=== PATIENT | female | born 1990 | race Two or more races ===

== ENCOUNTER → 2017-03-31 | Outpatient (REF) | payer OTHER ==
[~2017-03-31] MED LIST: ACET50TA PO; IBUP-1114 PO; NUPE1OIN2 TOP; VITAPRTA PO
== END ==
LOC: M SFHCADAM 11:41
PROVIDERS: ATTEND Family Medicine
DX: Z02.1 Encounter for pre-employment examination (principal)

== ENCOUNTER → 2018-06-27 | Outpatient (CLI) | payer OTHER ==
[~2018-06-27] MED LIST changes: -ACET50TA PO; +MAPA500T2 PO
[2018-06-27 17:02] LABS: BASO % 0.3 % (0.0-1.0); EOS # 0.3 10^3/uL (0.0-0.50); EOS % 3.7 % (0.0-3.0); HEMATOCRIT 38.2 % (36.0-47.0); HEMOGLOBIN 12.6 g/dl (12.0-15.5); LYMPH # 1.7 10^3/uL (1.5-6.5); LYMPH % 21.7 % (24.0-44.0); MEAN CORPUSCULAR HEMOGLOBIN 30.7 pg (27.0-33.0); MEAN CORPUSCULAR VOLUME 92.9 fl (80.0-96.0); MONO # 0.5 10^3/uL (0.0-0.8); MONO % 6.1 % (0.0-5.0); NEUTROPHILS # 5.3 10^3/uL (1.8-7.7); NEUTROPHILS % 67.8 % (36.0-66.0); PLATELET COUNT, AUTOMATED 322 10^3/uL (150-450); RED BLOOD COUNT 4.11 10^6/uL (4.00-5.40); WHITE BLOOD COUNT 7.9 10^3/uL (4.0-10.0)
[2018-06-27 18:13] LABS: CHLAMYDIA DNA AMPLIFICATION NEGATIVE (NEGATIVE); GC DNA AMPLIFICATION NEGATIVE (NEGATIVE)
[2018-06-28 09:50] LABS: HEPATITIS C VIRUS ABY INDEX < 0.0 INDEX (<0.8); HIV 1&2 SCREEN CENTAUR NEGATIVE (NEGATIVE); RUBELLA IgG QUALITATIVE IMMUNE (IMMUNE)
== END ==
LOC: M WUC 10:46
PROVIDERS: ATTEND Obstetrics & Gynecology
DX: Z36.89 Encounter for other specified antenatal screening (principal)

== ENCOUNTER → 2018-07-18 | Outpatient (CLI) | payer MEDICAID ==
[2018-07-18 16:40] LABS: FREE T4 0.92 NG/DL (0.76-1.46); THYROID STIMULATING HORMONE 0.439 uIU/ML (0.358-3.740)
== END ==
LOC: M WUC 14:46
PROVIDERS: ATTEND Obstetrics & Gynecology
DX: Z13.29 Encounter for screening for other suspected endocrine disorder (principal)

== ENCOUNTER → 2018-08-22 | Outpatient (CLI) | payer BC, MEDICAID ==
--- NOTE | 2018-08-22 10:01 | REP ---
OB ULTRASOUND: Real-time sonographic evaluation of the gravid uterus is performed. There is a single living intrauterine gestation. The estimated gestational age is 18 weeks 3 days based. EDC 01/20/2019. Today's measurements indicate appropriate growth. BPD 45 mm = 19 weeks 5 days, at the 84th percentile. HC 165 mm = 19 weeks 1 day, at the 74th percentile. AC 137 mm = 19 weeks 1 day, at the 66th percentile. Femur length 26 mm = 18 weeks 0 days, at the 41st percentile. HC/AC ratio 1.20 within normal range. Estimated weight 253 grams, 58th percentile. Cervix is closed measures 3.6 cm in length. heart rate 139 beats per minute. SEEN/GROSSLY UNREMARKABLE Lateral ventricles Yes Posterior fossa Yes Upper lip Yes Four-chamber heart Yes LVOT Yes RVOT Yes Stomach Yes Cord insertion Yes Three vessel cord Yes Kidneys Yes Bladder Yes Spine Sacrum not visualized. position: Breech. Placenta: Anterior and grade 0 with no previa or abruption. Amniotic fluid: Within normal limits. Electronically Signed by Jose Guadalupe Jones MD 08/23/2018 10:20 A
== END ==
LOC: M RAD 07:34
PROVIDERS: ATTEND Obstetrics & Gynecology
DX: Z34.82 Encounter for supervision of other normal pregnancy, second trimester (principal); Z3A.18 18 weeks gestation of pregnancy

== ENCOUNTER → 2018-10-02 | Outpatient (CLI) | payer MEDICAID ==
[2018-10-02 17:27] LABS: HEMATOCRIT 32.8 % (36.0-47.0); HEMOGLOBIN 10.7 g/dl (12.0-15.5); MEAN CORPUSCULAR HEMOGLOBIN 30.2 pg (27.0-33.0); MEAN CORPUSCULAR HGB CONC 32.6 g/dl (32.0-36.5); MEAN CORPUSCULAR VOLUME 92.7 fl (80.0-96.0); PLATELET COUNT, AUTOMATED 280 10^3/uL (150-450); RED BLOOD COUNT 3.54 10^6/uL (4.00-5.40); WHITE BLOOD COUNT 9.5 10^3/uL (4.0-10.0)
--- NOTE | 2018-10-03 05:01 | REP ---
Clinical: Anatomical evaluation. Comparison: 08/22/2018 . Findings: Examination demonstrates a single live intrauterine in cephalic presentation. motion is identified by technologist. Placenta is noted anterior and grade one without evidence for placenta previa or abruption. Amniotic fluid volume is normal. Cervix measures 4.4 cm in length and appears closed. No evidence for nuchal cord. Gestational age by LMP 24 weeks 2 days with ORAL 01/20/2019 . Gestational age by current measurements 24 weeks 5 days with ORAL 01/17/2019 . FHR equals 133 beats per minute. Estimated weight 728 grams ( 56 percentile). Anatomical assessment demonstrates normal structures including cranium, choroid plexus, cavum, cerebellum/posterior fossa, facial features, lungs, diaphragm, stomach, cord insertion/three-vessel cord, kidneys/bladder, spine, and extremities. Impression: Single live intrauterine in cephalic presentation demonstrating appropriate interval growth. In conjunction with prior examination anatomical assessment is complete and normal. No gross abnormalities are identified. Electronically Signed by Ariel Clark MD 10/03/2018 04:53 A
== END ==
LOC: M LAB 14:59
PROVIDERS: ATTEND Obstetrics & Gynecology
DX: Z34.82 Encounter for supervision of other normal pregnancy, second trimester (principal); Z3A.24 24 weeks gestation of pregnancy

== ENCOUNTER → 2018-10-06 | Outpatient (CLI) | payer MEDICAID | LOC: M LAB 08:18 | PROVIDERS: ATTEND Obstetrics & Gynecology | DX: Z34.82 Encounter for supervision of other normal pregnancy, second trimester (principal) ==

== ENCOUNTER → 2018-11-01 | Outpatient (REF) | payer MEDICAID | LOC: M LAB REF 16:52 | PROVIDERS: ATTEND Advanced Practice Midwife | DX: Z34.82 Encounter for supervision of other normal pregnancy, second trimester (principal) ==

== ENCOUNTER 2018-12-20 11:54 | Outpatient (CLI) | payer MEDICAID ==
[~2018-12-20] VITALS: Ht 149.9 cm; Wt 76.7 kg
[2018-12-20 12:14] VITALS: BP 124/73
[2018-12-20 12:47] VITALS: BP 122/66
[2018-12-20 12:59] LABS: HEMATOCRIT 33.7 % (36.0-47.0); HEMOGLOBIN 11.2 g/dl (12.0-15.5); MEAN CORPUSCULAR HEMOGLOBIN 30.8 pg (27.0-33.0); MEAN CORPUSCULAR HGB CONC 33.2 g/dl (32.0-36.5); MEAN CORPUSCULAR VOLUME 92.6 fl (80.0-96.0); PLATELET COUNT, AUTOMATED 272 10^3/uL (150-450); RED BLOOD COUNT 3.64 10^6/uL (4.00-5.40); WHITE BLOOD COUNT 9.8 10^3/uL (4.0-10.0)
[2018-12-20] MEDS ORDERED: TUMS500C PO (13:07)
[2018-12-20 13:11] LABS: INR 1.03; PROTHROMBIN TIME 13.2 SECONDS (11.8-14.0)
[2018-12-20 13:12] LABS: PARTIAL THROMBOPLASTIN TIME 27.2 SECONDS (25.0-38.4)
[2018-12-20 13:32] VITALS: BP 123/72
--- NOTE | 2018-12-20 13:55 | IPN ---
DATE OF SERVICE: 12/20/2018 Radha is a 28-year-old 2, para 1-0-0-1 at 35-4/7 weeks' gestation with an estimated date of confinement (EDC) of 01/20/2019 based on last menstrual period and confirmed by first-trimester ultrasound. She presents to labor and delivery today after falling at home down approximately five outdoor steps. She does deny hitting her abdomen in any way. She landed on her buttocks. She denies vaginal bleeding and leakage of fluid. The fetus has been active. She does report some occasional contractions, however, she reports they have been this way for the last 2 weeks. Her care was initiated at [facility] in the first trimester, and her course has been thus far uncomplicated. OBSTETRIC HISTORY: October 2015, 42 weeks' gestation, 6 pound 15 ounce male, vaginal delivery. No complications. OBSTETRIC LABORATORIES: O+, antibody screen negative, rubella immune, [facility] ([facility]) nonreactive. Urine culture no growth. Hepatitis B surface antigen negative, HIV negative, hepatitis C nonreactive, gonorrhea and chlamydia negative. She did decline genetic serum screening laboratories. Her gestational diabetic screening was abnormal at 181, 3-hour glucose tolerance test normal, fasting 90, 1-hour 158, 2-hour 131, and 3-hour 132. PAST MEDICAL HISTORY: Childhood varicella. SURGERIES: None. FAMILY HISTORY: Diabetes, hypertension, heart disease, depression, and hypothyroid. SOCIAL HISTORY: The patient is single, however, she does have a father of the baby involved. She does present today with her mother and aunt. She denies smoking, drug use, and ethyl alcohol (EtOH) use. She denies any history of sexually-transmitted infections and denies history of abuse: physical, sexual and emotional. ALLERGIES: No known drug allergies. CURRENT MEDICATIONS: Include only vitamin. OBJECTIVE: Temperature 97.4, pulse 100, respirations 18, BP is 124/73. She is alert and oriented times three. She does not appear in any distress. She is smiling and talkative. heart rate is 135 with moderate variability. Positive accelerations, no decelerations. Contractions are about every 4 minutes. They do palpate mild. Sterile vaginal examination deferred. ASSESSMENT: Intrauterine at 35-4/7 weeks. heart rate category one. Status post fall. PLAN: Will be observed for 4 hours with continuous monitoring. She may have bathroom privileges. Regular diet. Complete blood count (CBC), PT/PTT, fibrinogen, and KB have been ordered. Will discharge home with normal laboratories and with reassuring status times 4 hours. CR
[2018-12-20 14:43] VITALS: BP 121/65
[2018-12-20 15:53] VITALS: BP 119/70
[2018-12-20 16:13] VITALS: BP 117/64
== END 2018-12-20 16:38 | disposition home or self-care (01) ==
LOC: M LDO 11:54
PROVIDERS: ATTEND Advanced Practice Midwife
DX: Z04.3 Encounter for examination and observation following other accident (principal); W10.8XXA Fall (on) (from) other stairs and steps, initial encounter; Y92.89 Other specified places as the place of occurrence of the external cause; Y93.89 Activity, other specified; Y99.8 Other external cause status; Z3A.35 35 weeks gestation of pregnancy

== ENCOUNTER → 2018-12-26 | Outpatient (CLI) | payer MEDICAID ==
[~2018-12-26] MED LIST changes: +TUMS500C PO
== END ==
LOC: M WUC 13:37
PROVIDERS: ATTEND Advanced Practice Midwife
DX: Z34.83 Encounter for supervision of other normal pregnancy, third trimester (principal); Z3A.00 Weeks of gestation of pregnancy not specified

== ENCOUNTER 2019-01-21 21:34 | Inpatient (IN) | payer BC, MEDICAID ==
[~2019-01-21] VITALS: Ht 149.9 cm; Wt 79.5 kg
[2019-01-21 21:52] VITALS: BP 120/67
[2019-01-21 23:26] LABS: MEAN CORPUSCULAR HEMOGLOBIN 30.7 pg (27.0-33.0); MEAN CORPUSCULAR HGB CONC 33.3 g/dl (32.0-36.5); MEAN CORPUSCULAR VOLUME 92.2 fl (80.0-96.0); PLATELET COUNT, AUTOMATED 293 10^3/uL (150-450); RED BLOOD COUNT 3.58 10^6/uL (4.00-5.40); WHITE BLOOD COUNT 9.8 10^3/uL (4.0-10.0)
[2019-01-21 23:48] VITALS: BP 109/61
[2019-01-22] VITALS (42 sets, daily range): BP systolic 92–138; BP diastolic 48–90
--- NOTE | 2019-01-22 05:57 | HPE ---
DATE OF ADMISSION: 01/21/2019 28-year-old (G)2, para (P) 1 female at 42-7/8 weeks gestation by last menstrual period (LMP) consistent with 9 week ultrasound with estimated date of confinement (EDC) of 01/20/2019 presents with regular contractions every 3-4 minutes for the last several hours. The contractions have increased in intensity. She is not leaking fluid. She denies vaginal bleeding. The patient lives in [place], [place] which is approximately one hour away. She drove into [place] before calling just so she could be close to the hospital. COURSE: The patient received care at 9 weeks gestation, 06/20/2018. Her first trimester blood pressure was 118/64, weight 161 pounds. The patient had no complications. OBSTETRICAL HISTORY: 06/2015: 42-week vaginal delivery of 6 pound, 15 ounce male , no complications. ALLERGIES: NONE. MEDICAL HISTORY: None. SURGICAL HISTORY: None. SOCIAL HISTORY: The patient lives in [place]. Father of the baby is involved. She denies cigarettes, alcohol or drug use. FAMILY HISTORY: Noncontributory. PHYSICAL EXAMINATION: Blood pressure 124/78, pulse 84. She appears mildly uncomfortable. Head and Neck Exam: Normal. Lungs: Clear. Heart: Regular rate and rhythm. Abdomen: Nontender. Gravid. heart tones Category I. Contractions: Every 3-4 minutes, moderate to palpation. Sterile Vaginal Exam: 3 cm, 100%, -2, posterior, soft, vertex. Extremities: Nontender. LABORATORY DATA: Blood type O positive, Rubella immune. RPR nonreactive. GBS negative on 12/26/2018. ASSESSMENT: 28-year-old 2, para 1 at 42-7/8 weeks gestation presents in early labor. PLAN: The patient is admitted on 01/21/2019.
[2019-01-22] MEDS ORDERED: OXYTOCIN DRIP 30 UNITS in APPROPRIATE DILUENT 1 EA IV SCH ×2 (07:45→17:06)
[2019-01-22] MEDS: LR 1,000 ML IV SCH ×3 (08:01→13:37)
[2019-01-22] MEDS ORDERED: FENTANYL 2MCG/ML ROPIVACAINE 0.2% IN 0.9% NACL 100ML IVBAG As Ordered ONE (10:21)
[2019-01-22] MEDS ORDERED: ePHEDrine SULFATE 25 MG/5 ML(5MG/ML) SYRINGE IV PRN (11:45)
[2019-01-22] MEDS ORDERED: FENTANYL/ROPIVACAINE/NACL BAG 100 ML EPIDURAL SCH (11:45)
[2019-01-22] MEDS ORDERED: NALOXONE INJ 0.4 MG/1 ML VIAL (J2310) IV PRN (11:45)
[2019-01-22] MEDS ORDERED: EPIDURAL/PCA KEYS XX PRN (11:45)
[2019-01-22] MEDS ORDERED: CALCIUM CARBONATE 500 MG CHEW U/D PO PRN (11:45)
[2019-01-22] MEDS ORDERED: diphenhydrAMINE INJ 50MG/ML VIAL (J1200) IV PRN (11:45)
[2019-01-22] MEDS ORDERED: ONDANSETRON 4MG/2ML VIAL (J2405) IV PRN (11:45)
[2019-01-22] MEDS ORDERED: REFRIGERATOR IV KEYS XX PRN (11:45)
[2019-01-22] MEDS ORDERED: LACTATED RINGER'S 1000 ML IV PRN (11:45)
[2019-01-22] MEDS ORDERED: EPIDURAL COMMENT XX SCH (11:45)
--- NOTE | 2019-01-22 14:22 | IPNPDOC ---
Obstetrical Progress Note Date of Service Jan 22, 2019 Subjective Patient reports she is comfortable with her epidural. Objective Vital Signs Date Time Temp Pulse Resp B/P (MAP) Pulse Ox O2 Delivery O2 Flow Rate FiO2 01/22/19 13:38 99.2 01/22/19 13:34 93 123/70 (87) 01/22/19 11:00 18 Assessment Heart Rate (FHR): 130 Variability: Moderate Accelerations: Positive Decelerations: None Heart Rate Tracing: Category I Tocometer Contractions: Yes Frequency: regular Sterile Vaginal Examination Dilation: 4 cm (4-5 cm) Effacement (%): 80% Station: -1 Cervical Consistency: Soft Cervical Position: Anterior Postion/Presentation: Cephalic presentation Assessment and Plan Age: 28 : 2 Term: 1 Livin EGA at Admission: 40.2 Status: Reassuring Group B Streptococcus: Negative Anticipate: Vaginal Delivery Additional Comments IV Pitocin is at 14 mu/min. AROM to a large amount of clear fluid. PILO BOGGS CNM Jan 22, 2019 14:22
[2019-01-22] MEDS ORDERED: DIBUCAINE 1% OINTMENT 30GM TOP PRN (17:15)
[2019-01-22] MEDS ORDERED: RHOGAM 300 MCG (1500 IU) INJ (J2790) IM SCH (17:15)
[2019-01-22] MEDS ORDERED: MEASLES,MUMPS,RUBELLA VACCINE INJ (MMR-II) (90707) SC SCH (17:15)
[2019-01-22] MEDS ORDERED: ACETAMINOPHEN TAB 650MG DOSE (2X325MG) PO PRN (17:15)
[2019-01-22] MEDS ORDERED: IBUPROFEN 600 MG TAB PO PRN (17:15)
[2019-01-22] MEDS ORDERED: METHYLERGONOVINE MALEATE 0.2 MG TAB PO PRN (17:15)
[2019-01-22] MEDS ORDERED: DOCUSATE SODIUM 100 MG CAP PO PRN (17:15)
--- NOTE | 2019-01-22 17:34 | DNPDOC ---
[facility] Delivery Note Delivery Note DATE OF DELIVERY: 01/22/19 at 1541 PREDELIVERY DIAGNOSIS: 40-2/7 weeks' gestation and labor. POST DELIVERY DIAGNOSIS: Delivered. PROCEDURE: Spontaneous vaginal delivery.. DIRECTOR SUPPLY CHAIN: Pilo Blunt CNM, LARRY ANESTHESIA: epidural. ESTIMATED BLOOD LOSS: 350 mL. FINDINGS: 7 pounds 9 ounces, 3440 grams, male , Score 9/9, nuchal cord times x 1 loose. DELIVERY SUMMARY: Patient is a 28-year-old female who is now a at 40 weeks 2 days gestation who presented to L&D in early labor. the patient received IV Pitocin for augmentation and an epidural for pain management. She progressed to fully dilated at 1538 and pushed to a living male in the RACHEL position with restitution to ROT at 1541. A loose nuchal cord was noted. The anterior shoulder delivered with ease and the corpus immediately followed. The baby was placed on the maternal abdomen active and crying. The cord was clamped times 2 after pulsation ceased and cut by the FOB. A 3-vessel cord was noted. The placenta delivered spontaneously and intact at 1547. Uterine hemostasis was achieved via rapid infusion of IV Pitocin and fundal massage. The vagina, cervix, and perineum were inspected and found to be intact. Mom plans to breast feed her . Both mom and baby are in stable condition. All instruments and sponge counts are correct. Parents are undecided on name. PILO BLUNT CNM Jan 22, 2019 17:33
[2019-01-22] MEDS: IBUPROFEN 800 MG TAB PO PRN (19:18)
[2019-01-23] MEDS: ACETAMINOPHEN 500 MG TAB PO PRN (00:06)
[2019-01-23] MEDS: IBUPROFEN 800 MG TAB PO PRN ×2 (05:30→18:11)
[2019-01-23 06:35] VITALS: BP 111/61
--- NOTE | 2019-01-23 06:50 | IPNPDOC ---
Progress Note Date of Service: Jan 23, 2019 Day#: 1 Progress Note SUBJECT: She has been ambulating, voiding spontaneously without issue and tole rating regular diet. Breast feeding without issue. Reports minimal pain managed with motrin and tylenol. OBJECTIVE: VITAL SIGNS: Within normal limits, afebrile. Alert and oriented times three. Breath sounds clear to auscultation. Heart rate: Regular rate and rhythm, no murmurs, rubs or gallops. Abdomen: Fundus firm at U. Soft, NTTP. Minimal lochia. ASSESSMENT: Day 1 PLAN: 1. Continue supportive nursing care. Anticipate discharge to home tomorrow. VS, I&O, 24H, Fishbone Vital Signs/I&O Vital Signs Date Time Temp Pulse Resp B/P (MAP) Pulse Ox O2 Delivery O2 Flow Rate FiO2 01/23/19 06:35 97.1 77 18 111/61 (78) 01/22/19 18:29 94 I&O- Last 24 Hours up to 6 AM 01/23/19 06:00 Intake Total 3400 ml Output Total 1250 ml Balance 2150 ml PILO BOGGS CNM Jan 23, 2019 06:50
[2019-01-23] MEDS: PRENATAL VITAMINS CHEWABLE TABLET PO SCH (09:13)
[2019-01-23 18:00] VITALS: BP 127/77
[2019-01-24 06:40] VITALS: BP 115/56
[2019-01-24] MEDS: ACETAMINOPHEN 500 MG TAB PO PRN (07:11)
[2019-01-24] MEDS: PRENATAL VITAMINS CHEWABLE TABLET PO SCH (08:50)
== END 2019-01-24 11:10 | disposition home or self-care (01) | DRG 560 ==
LOC: M LDO 21:34 → M LDI 22:50 → M OBS 01-22 18:13
PROVIDERS: ADMIT Specialist; ATTEND Advanced Practice Midwife
PROC: 10E0XZZ Delivery of Products of Conception, External Approach (ICD-10-PCS; principal; 2019-01-22)
DX: O48.0 Post-term pregnancy (principal); Z3A.42 42 weeks gestation of pregnancy; Z37.0 Single live birth; O69.81X0 Labor and delivery complicated by cord around neck, without compression, not applicable or unspecified

== ENCOUNTER → 2019-05-11 | Outpatient (REF) | payer MEDICAID | LOC: M SFHCWAGY 13:59 | PROVIDERS: ATTEND Advanced Practice Midwife | DX: Z12.4 Encounter for screening for malignant neoplasm of cervix (principal) ==

== ENCOUNTER → 2021-04-22 | Outpatient (REF) | payer MEDICAID, OTHER ==
[2021-04-22 13:10] LABS: HEMATOCRIT 40.6 % (36.0-47.0); HEMOGLOBIN 13.4 g/dl (12.0-15.5); MEAN CORPUSCULAR HEMOGLOBIN 30.8 pg (27.0-33.0); MEAN CORPUSCULAR VOLUME 93.3 fl (80.0-96.0); PLATELET COUNT, AUTOMATED 334 10^3/uL (150-450); RED BLOOD COUNT 4.35 10^6/uL (4.00-5.40); WHITE BLOOD COUNT 7.6 10^3/uL (4.0-10.0)
[2021-04-22 13:52] LABS: ALT/SGPT 28 U/L (12-78); BILIRUBIN,TOTAL 0.5 MG/DL (0.2-1.0); BLOOD UREA NITROGEN 16 MG/DL (7-18); CARBON DIOXIDE LEVEL 26 MEQ/L (21-32); CHLORIDE LEVEL 108 MEQ/L (98-107); CREATININE FOR GFR 0.58 MG/DL (0.55-1.30); FREE T4 0.93 NG/DL (0.76-1.46); GLOMERULAR FILTRATION RATE > 60.0 (>60); GLUCOSE, FASTING 98 MG/DL (70-100); SODIUM LEVEL 139 MEQ/L (136-145); THYROID STIMULATING HORMONE 0.953 uIU/ML (0.358-3.740)
== END ==
LOC: M SFHCADAM 12:18
PROVIDERS: ATTEND Physician Assistant Medical
DX: F32.1 Major depressive disorder, single episode, moderate (principal); F41.1 Generalized anxiety disorder

== ENCOUNTER → 2021-08-19 | Outpatient (CLI) | payer OTHER ==
[2021-08-19 18:04] LABS: HEMATOCRIT 35.8 % (36.0-47.0); HEMOGLOBIN 12.3 g/dl (12.0-15.5); MEAN CORPUSCULAR HEMOGLOBIN 31.1 pg (27.0-33.0); MEAN CORPUSCULAR HGB CONC 34.4 g/dl (32.0-36.5); MEAN CORPUSCULAR VOLUME 90.4 fl (80.0-96.0); PLATELET COUNT, AUTOMATED 323 10^3/uL (150-450); RED BLOOD COUNT 3.96 10^6/uL (4.00-5.40)
== END ==
LOC: M PLALAB 15:56
PROVIDERS: ATTEND Advanced Practice Midwife
DX: Z34.81 Encounter for supervision of other normal pregnancy, first trimester (principal)

== ENCOUNTER → 2021-09-17 | Outpatient (REF) | payer OTHER | LOC: M SFHCWAGY 17:06 | PROVIDERS: ATTEND Advanced Practice Midwife | DX: Z36.9 Encounter for antenatal screening, unspecified (principal) ==

== ENCOUNTER → 2021-09-18 | Outpatient (CLI) | payer OTHER ==
[2021-09-18 13:22] LABS: HEMATOCRIT 33.5 % (36.0-47.0); HEMOGLOBIN 11.4 g/dl (12.0-15.5); MEAN CORPUSCULAR HEMOGLOBIN 31.8 pg (27.0-33.0); MEAN CORPUSCULAR VOLUME 93.6 fl (80.0-96.0); PLATELET COUNT, AUTOMATED 251 10^3/uL (150-450); RED BLOOD COUNT 3.58 10^6/uL (4.00-5.40); WHITE BLOOD COUNT 8.2 10^3/uL (4.0-10.0)
[2021-09-18 14:22] LABS: GC DNA AMPLIFICATION NEGATIVE (NEGATIVE)
[2021-09-18 20:06] LABS: HEPATITIS C VIRUS ABY INDEX 0.1 INDEX (<0.8); HIV 1&2 SCREEN CENTAUR NEGATIVE (NEGATIVE)
== END ==
LOC: M ADAMS 08:21
PROVIDERS: ATTEND Advanced Practice Midwife
DX: Z34.81 Encounter for supervision of other normal pregnancy, first trimester (principal); Z36.89 Encounter for other specified antenatal screening

== ENCOUNTER → 2021-10-12 | Outpatient (CLI) | payer OTHER | LOC: M WHC 10:12 | PROVIDERS: ATTEND Advanced Practice Midwife | DX: Z34.82 Encounter for supervision of other normal pregnancy, second trimester (principal); Z3A.18 18 weeks gestation of pregnancy ==

== ENCOUNTER → 2021-10-30 | Outpatient (CLI) | payer OTHER | LOC: M WHC 08:51 | PROVIDERS: ATTEND Advanced Practice Midwife | DX: O32.2XX0 Maternal care for transverse and oblique lie, not applicable or unspecified (principal); Z36.2 Encounter for other antenatal screening follow-up; Z3A.22 22 weeks gestation of pregnancy ==

== ENCOUNTER → 2021-12-17 | Outpatient (CLI) | payer OTHER ==
[2021-12-17 13:47] LABS: HEMATOCRIT 32.9 % (36.0-47.0); HEMOGLOBIN 10.7 g/dl (12.0-15.5); MEAN CORPUSCULAR HEMOGLOBIN 31.2 pg (27.0-33.0); MEAN CORPUSCULAR HGB CONC 32.5 g/dl (32.0-36.5); MEAN CORPUSCULAR VOLUME 95.9 fl (80.0-96.0); PLATELET COUNT, AUTOMATED 260 10^3/uL (150-450); RED BLOOD COUNT 3.43 10^6/uL (4.00-5.40); WHITE BLOOD COUNT 7.2 10^3/uL (4.0-10.0)
== END ==
LOC: M PLALAB 09:12
PROVIDERS: ATTEND Obstetrics & Gynecology
DX: Z34.92 Encounter for supervision of normal pregnancy, unspecified, second trimester (principal)

== ENCOUNTER → 2021-12-25 | Outpatient (CLI) | payer OTHER | LOC: M WHC 14:16 | PROVIDERS: ATTEND Obstetrics & Gynecology | DX: Z34.92 Encounter for supervision of normal pregnancy, unspecified, second trimester (principal); Z36.2 Encounter for other antenatal screening follow-up; Z3A.29 29 weeks gestation of pregnancy ==

== ENCOUNTER → 2021-12-28 | Outpatient (CLI) | payer OTHER | LOC: M LAB 07:07 | PROVIDERS: ATTEND Obstetrics & Gynecology | DX: O99.810 Abnormal glucose complicating pregnancy (principal) ==

== ENCOUNTER → 2022-02-09 | Outpatient (REF) | payer OTHER | LOC: M SFHCWAGY 13:13 | PROVIDERS: ATTEND Obstetrics & Gynecology | DX: Z34.93 Encounter for supervision of normal pregnancy, unspecified, third trimester (principal) ==

== ENCOUNTER → 2023-07-27 | Outpatient (REF) | payer OTHER ==
[~2023-07-27] MED LIST changes: +ACET-683 PO; +IBUP80TA PO
[2023-07-27 13:44] LABS: BASO # 0.1 10^3/uL (0.0-0.2); BASO % 0.7 % (0.0-1.0); EOS # 0.6 10^3/uL (0.0-0.5); EOS % 6.1 % (0.0-3.0); HEMATOCRIT 41.1 % (36.0-47.0); HEMOGLOBIN 13.3 g/dl (12.0-15.5); LYMPH # 2.5 10^3/uL (1.5-5.0); LYMPH % 25.5 % (24.0-44.0); MEAN CORPUSCULAR HGB CONC 32.4 g/dl (32.0-36.5); MEAN CORPUSCULAR VOLUME 92.8 fl (80.0-96.0); MONO # 0.7 10^3/uL (0.0-0.8); MONO % 7.4 % (2.0-8.0); NEUTROPHILS # 5.9 10^3/uL (1.5-8.5); PLATELET COUNT, AUTOMATED 381 10^3/uL (150-450); RED BLOOD COUNT 4.43 10^6/uL (4.00-5.40); WHITE BLOOD COUNT 9.9 10^3/uL (4.0-10.0)
[2023-07-27 13:58] LABS: FREE T4 1.08 NG/DL (0.89-1.76); THYROID STIMULATING HORMONE 1.249 uIU/ML (0.55-4.78)
[2023-07-27 13:59] LABS: VITAMIN B12 LEVEL 685 PG/ML (211-911)
[2023-07-27 14:01] LABS: FOLATE 12.3 NG/ML (>5.4)
[2023-07-27 14:03] LABS: ALKALINE PHOSPHATASE 72 U/L (46-116); ALT/SGPT 32 U/L (7.0-40); AST/SGOT 13 U/L (<34); BILIRUBIN,TOTAL 0.2 MG/DL (0.3-1.2); BLOOD UREA NITROGEN 16 MG/DL (9-23); CALCIUM LEVEL 9.4 MG/DL (8.5-10.1); CARBON DIOXIDE LEVEL 27 MMOL/L (20-31); CHLORIDE LEVEL 108 MMOL/L (98-107); CREATININE FOR GFR 0.47 MG/DL (0.55-1.30); GLOMERULAR FILTRATION RATE > 60.0 (>60); GLUCOSE, FASTING 95 MG/DL (60-100); POTASSIUM SERUM 4.4 MMOL/L (3.5-5.1); SODIUM LEVEL 143 MMOL/L (136-145); TOTAL PROTEIN 7.1 G/DL (5.7-8.2)
== END ==
LOC: M SFHCADAM 10:06
PROVIDERS: ATTEND Physician Assistant Medical
DX: Z00.00 Encounter for general adult medical examination without abnormal findings (principal); Z83.49 Family history of other endocrine, nutritional and metabolic diseases; F33.0 Major depressive disorder, recurrent, mild; Z13.0 Encounter for screening for diseases of the blood and blood-forming organs and certain disorders involving the immune mechanism; Z13.21 Encounter for screening for nutritional disorder